=== PATIENT | male | born 1945 | race Caucasian/White ===

== ENCOUNTER 2018-05-03 12:14 | Emergency (ER) | payer MEDICARE ==
[~2018-05-03] VITALS: Ht 167.6 cm; Wt 84.1 kg
[2018-05-03 12:56] LABS: INR 1.1 INR; PARTIAL THROMBOPLASTIN TIME 31 SECONDS (22-32)
[2018-05-03 13:02] LABS: ALANINE AMINOTRANSFERASE 119 U/L (12-78); ALBUMIN 2.9 G/DL (3.4-5.0); ALBUMIN/GLOBULIN RATIO 0.7 (1.1-1.5); ALKALINE PHOSPHATASE 97 IU/L (46-116); ANION GAP 11 (8-16); ASPARTATE AMINO TRANSFERASE 74 U/L (10-37); BILIRUBIN,TOTAL 0.7 MG/DL (0.1-1.0); BLOOD UREA NITROGEN 17 MG/DL (7-18); CALCIUM 8.7 MG/DL (8.5-10.1); CHLORIDE 101 MMOL/L (99-107); CREATININE 1.13 MG/DL (0.60-1.10); GLUCOSE 177 MG/DL (70-104); POTASSIUM 3.9 MMOL/L (3.5-5.1); SODIUM 137 MMOL/L (135-145); TOTAL CARBON DIOXIDE 25.5 MMOL/L (24-32); TOTAL PROTEIN 6.9 G/DL (6.4-8.2); eGFR 64 ML/MIN
[2018-05-03 13:06] LABS: BASOPHILS % (AUTO) 0.5 % (0-1); EOSINOPHILS # (AUTO) 0.1 X10'3 (0-0.9); HEMATOCRIT 37.7 % (42.0-52.0); LYMPHOCYTES # (AUTO) 1.2 X10'3 (1.1-4.8); MEAN CORPUSCULAR HEMOGLOBIN 29.9 PG (27.0-31.0); MEAN CORPUSCULAR HGB CONC 34.4 % (33.0-36.5); MEAN CORPUSCULAR VOLUME 87.1 FL (78-98); MEAN PLATELET VOLUME 8.4 FL (7.4-10.4); MONOCYTES # (AUTO) 0.5 X10'3 (0-0.9); MONOCYTES % (AUTO) 7.2 % (2-12); NEUTROPHILS # (AUTO) 5.4 X10'3 (1.8-7.7); NEUTROPHILS % (AUTO) 73.3 % (42-75); PLATELET COUNT 214 X10'3 (140-440); RED BLOOD COUNT 4.33 X10'6 (4.70-6.10); RED CELL DISTRIBUTION WIDTH 13.3 % (11.5-14.5); WHITE BLOOD COUNT 7.3 X10'3 (4.5-11.0)
[2018-05-03] MEDS ORDERED: furosemide 20MG tablet PO ONE (13:40)
[2018-05-03] MEDS ORDERED: FURO-150 PO (13:41)
[2018-05-03] MEDS ORDERED: POTA10TA10 PO (13:41)
[2018-05-03] MEDS ORDERED: LEVO500T2 PO (13:41)
[2018-05-03 13:51] VITALS: BP 147/66
== END 2018-05-03 13:57 | disposition home or self-care (01) ==
LOC: ER 12:15
DX: J18.9 Pneumonia, unspecified organism (principal); I50.9 Heart failure, unspecified
CPT/HCPCS: 36415; 71045; 80053; 83880; 84484; 85025; 85610; 85730; 93005; 99285

== ENCOUNTER 2021-11-01 15:16 | Emergency (ER) | payer MEDICARE ==
[~2021-11-01] VITALS: Ht 167.6 cm; Wt 77.3 kg
[~2021-11-01 15:16] MED LIST: FURO-150 PO
[2021-11-01 15:41] VITALS: BP 172/70
[2021-11-01] MEDS ORDERED: AZIT-103 PO (17:06)
[2021-11-01] MEDS ORDERED: ALBU8HFA PO (17:06)
== END 2021-11-01 17:30 | disposition home or self-care (01) ==
LOC: ER 15:18
DX: J20.9 Acute bronchitis, unspecified (principal); R63.0 Anorexia; Z87.01 Personal history of pneumonia (recurrent); Z79.899 Other long term (current) drug therapy; Z68.27 Body mass index [BMI] 27.0-27.9, adult
CPT/HCPCS: 71045; 99283

== ENCOUNTER 2024-01-22 22:17 | Emergency (ER) | payer MEDICARE ==
[~2024-01-22] VITALS: Ht 167.6 cm; Wt 79.5 kg
[2024-01-22 22:21] VITALS: TEMP 96.6
[2024-01-22 22:39] LABS: BASOPHILS # (AUTO) 0.1 X10'3 (0-0.2); HEMATOCRIT 39.3 % (42.0-52.0); HEMOGLOBIN 13.1 g/dl (14.0-17.9); MEAN CORPUSCULAR HEMOGLOBIN 29.4 PG (27.0-31.0); MEAN CORPUSCULAR HGB CONC 33.2 g/dL (33.0-36.5); MEAN CORPUSCULAR VOLUME 88.5 FL (78-98); RED BLOOD COUNT 4.44 X10'6 (4.70-6.10); WHITE BLOOD COUNT 5.9 X10'3 (4.5-11.0)
[2024-01-22 22:40] LABS: BASOPHILS % (AUTO) 0.9 % (0-1); EOSINOPHILS # (AUTO) 0.1 X10'3 (0-0.9); EOSINOPHILS % (AUTO) 2.4 % (0-6); LYMPHOCYTES # (AUTO) 1.9 X10'3 (1.1-4.8); LYMPHOCYTES % (AUTO) 31.5 % (21-51); MEAN PLATELET VOLUME 8.1 FL (7.4-10.4); MONOCYTES # (AUTO) 0.5 X10'3 (0-0.9); MONOCYTES % (AUTO) 8.9 % (2-12); NEUTROPHILS # (AUTO) 3.3 X10'3 (1.8-7.7); NEUTROPHILS % (AUTO) 56.3 % (42-75); PLATELET COUNT 182 X10'3 (140-440); RED CELL DISTRIBUTION WIDTH 15.7 % (11.5-14.5)
[2024-01-22] MEDS: ondansetron 4mg rapidly disintigrating tab PO ONE (22:57)
[2024-01-22] MEDS: aspirin 325mg tablet PO ONE (22:57)
[2024-01-22 23:05] LABS: ALBUMIN 3.5 G/DL (3.4-5.0); ANION GAP 5 (8-16); BLOOD UREA NITROGEN 20 MG/DL (7-18); BUN/CREATININE RATIO 18.9 (10.0-20.0); CALCIUM 9.2 MG/DL (8.5-10.1); CHLORIDE 104 MMOL/L (99-107); CREATININE 1.06 MG/DL (0.60-1.10); GLUCOSE 150 MG/DL (70-104); POTASSIUM 3.8 MMOL/L (3.5-5.1); PRO BRAIN NATRIURETIC PEPTIDE 649 PG/ML (0-450); SODIUM 139 MMOL/L (135-145); TOTAL CARBON DIOXIDE 29.9 MMOL/L (24-32); eCRCL 51 ML/MIN; eGFR 67 ML/MIN
[2024-01-23] MEDS: ondansetron/PF 4mg/2ml inj IV ONE (00:25)
[2024-01-23 00:33] VITALS: BP 128/50; PULSE 58; RESP 17; O2SAT 97
== END 2024-01-23 03:45 | disposition home or self-care (01) ==
LOC: ER 22:18
DX: R10.11 Right upper quadrant pain (principal); Z79.899 Other long term (current) drug therapy
CPT/HCPCS: 36415; 71045; 74176; 76700; 80048; 83880; 84484; 85025; 93005; 96374; 99285; J2405

== ENCOUNTER 2024-05-15 18:38 | Inpatient (IN) | payer MEDICARE ==
[~2024-05-15] VITALS: Ht 168.9 cm; Wt 80.5 kg
[2024-05-15 19:15] LABS: BASOPHILS % (AUTO) 0.3 % (0-1); EOSINOPHILS % (AUTO) 0 % (0-6); HEMATOCRIT 35.3 % (42.0-52.0); HEMOGLOBIN 11.7 g/dl (14.0-17.9); LYMPHOCYTES # (AUTO) 0.6 X10'3 (1.1-4.8); LYMPHOCYTES % (AUTO) 4.5 % (21-51); MEAN CORPUSCULAR HEMOGLOBIN 29.1 PG (27.0-31.0); MEAN CORPUSCULAR HGB CONC 33.1 g/dL (33.0-36.5); MEAN CORPUSCULAR VOLUME 87.9 FL (78-98); MEAN PLATELET VOLUME 8.1 FL (7.4-10.4); MONOCYTES # (AUTO) 1.1 X10'3 (0-0.9); MONOCYTES % (AUTO) 8.1 % (2-12); NEUTROPHILS # (AUTO) 12.2 X10'3 (1.8-7.7); NEUTROPHILS % (AUTO) 87.1 % (42-75); PLATELET COUNT 161 X10'3 (140-440); RED BLOOD COUNT 4.01 X10'6 (4.70-6.10); RED CELL DISTRIBUTION WIDTH 15.7 % (11.5-14.5)
[2024-05-15 19:27] LABS: ALANINE AMINOTRANSFERASE 23 U/L (12-78); ALBUMIN 2.8 G/DL (3.4-5.0); ALBUMIN/GLOBULIN RATIO 0.8 (1.1-1.5); ALKALINE PHOSPHATASE 71 IU/L (46-116); ANION GAP 10 (8-16); ASPARTATE AMINO TRANSFERASE 24 U/L (10-37); BILIRUBIN,TOTAL 1.5 MG/DL (0.1-1.0); BLOOD UREA NITROGEN 19 MG/DL (7-18); BUN/CREATININE RATIO 15.3 (10.0-20.0); CALCIUM 8.7 MG/DL (8.5-10.1); CHLORIDE 103 MMOL/L (99-107); CREATININE 1.24 MG/DL (0.60-1.10); GLUCOSE 139 MG/DL (70-104); POTASSIUM 3.6 MMOL/L (3.5-5.1); SODIUM 136 MMOL/L (135-145); TOTAL CARBON DIOXIDE 22.9 MMOL/L (24-32); TOTAL PROTEIN 6.1 G/DL (6.4-8.2); eCRCL 44 ML/MIN; eGFR 56 ML/MIN
[2024-05-15 19:35] LABS: MAGNESIUM 1.7 MG/DL (1.5-2.4); PRO BRAIN NATRIURETIC PEPTIDE 3284 PG/ML (0-450)
[2024-05-15 19:46] LABS: BILIRUBIN,URINE SMALL (Neg); CLARITY,URINE CLOUDY (Clear); COLOR,URINE YELLOW (Yellow); GLUCOSE, URINE NEGATIVE (Neg); KETONES,URINE NEGATIVE (Neg); LEUKOCYTE ESTERASE ,URINE SMALL (Neg); NITRITES, URINE POSITIVE (Neg); OCCULT BLOOD,URINE SMALL (Neg); PH,URINE 5.5 (4.8-8.0); PROTEIN,URINE 30 mg/dl (Neg)
[2024-05-15 19:55] LABS: UA COLLECTION TYPE URINAL
[2024-05-15 20:01] LABS: MUCUS STRANDS FEW /LPF (Neg); SQUAMOUS EPITHELIAL CELL,UR FEW /LPF (FEW); WBC,URINE TNTC /HPF (0-4)
[2024-05-15 20:02] LABS: BACTERIA,URINE 3+ /HPF (Neg); TRANSITIONAL EPI CELLS,URINE FEW /HPF
[2024-05-15] MEDS: CefTRIAXone 2gm/D5W 50ml BAG 50 ML IV ONE (20:55)
[2024-05-15] MEDS ORDERED: potassium Cl 20 mEq SR tablet PO PRN ×2 (23:40)
[2024-05-15] MEDS ORDERED: magnesium sulf-water 4G/100mL 100 ML IV PRN (23:40)
[2024-05-15] MEDS ORDERED: potassium Cl 40MEQ/1/2NS 520ml 520 ML IV PRN (23:40)
[2024-05-15] MEDS ORDERED: DEXTROSE 15 GM of carb/4 tabs (each vial/BOTTLE has 4 tablets) PO PRN ×2 (23:40)
[2024-05-15] MEDS ORDERED: glucagon, human recombinant 1mg kit SUBCUT PRN (23:40)
[2024-05-15] MEDS ORDERED: magnesium hydroxide 30ml (MOM) UD suspension PO PRN (23:40)
[2024-05-15] MEDS ORDERED: acetaminophen 325mg tablet PO PRN (23:40)
[2024-05-15] MEDS ORDERED: magnesium Cl slow-release 64mg tablet PO PRN (23:40)
[2024-05-15] MEDS ORDERED: magnesium sulf-water 2g/50mL 50 ML IV PRN (23:40)
[2024-05-15] MEDS ORDERED: dextrose 50%-water 50ml dispensing syringe IV PRN ×2 (23:40)
[2024-05-16] VITALS (11 sets, daily range): BP systolic 109–132; BP diastolic 40–78; PULSE 55–84; RESP 14–20; TEMP 96.8–98; O2SAT 96–100
[2024-05-16] MEDS ORDERED: nitroGLYCERIN 0.4mg SUBLingual tab SL PRN (00:25)
[2024-05-16] MEDS ORDERED: metoprolol tartrate 1mg/ml inj IV PRN (00:25)
[2024-05-16] MEDS ORDERED: aminophylline 250mg/10ml inj. IV PRN (00:25)
[2024-05-16] MEDS ORDERED: METO25TA6 PO (01:44)
[2024-05-16] MEDS ORDERED: METF-1203 PO (01:44)
[2024-05-16] MEDS ORDERED: FLO0.4C (01:44)
[2024-05-16] MEDS ORDERED: RAMI2.5C56 PO (01:44)
[2024-05-16] MEDS ORDERED: PIOG45TA65 PO (01:44)
[2024-05-16] MEDS ORDERED: EZET10TA48 PO (01:44)
[2024-05-16] MEDS ORDERED: ATOR-2 PO (01:44)
[2024-05-16] MEDS: INSULIN LISPRO 100 UNIT/ML INSULN.PEN MULTI-DOSE SQ SCH ×2 (07:00→08:28)
[2024-05-16] MEDS: docusate sod 100mg capsule PO SCH (07:13)
[2024-05-16] MEDS: K and/or MAG REPLACEMENT MC SCH (07:13)
[2024-05-16 07:45] LABS: BASOPHILS % (AUTO) 0.3 % (0-1); EOSINOPHILS % (AUTO) 0 % (0-6); HEMATOCRIT 32.6 % (42.0-52.0); HEMOGLOBIN 10.8 g/dl (14.0-17.9); LYMPHOCYTES # (AUTO) 0.9 X10'3 (1.1-4.8); LYMPHOCYTES % (AUTO) 7.2 % (21-51); MEAN CORPUSCULAR HEMOGLOBIN 29.2 PG (27.0-31.0); MEAN CORPUSCULAR VOLUME 88.5 FL (78-98); NEUTROPHILS # (AUTO) 10.5 X10'3 (1.8-7.7); NEUTROPHILS % (AUTO) 84.5 % (42-75); PLATELET COUNT 128 X10'3 (140-440); RED BLOOD COUNT 3.68 X10'6 (4.70-6.10); WHITE BLOOD COUNT 12.4 X10'3 (4.5-11.0)
[2024-05-16 08:00] LABS: ALBUMIN 2.6 G/DL (3.4-5.0); ANION GAP 12 (8-16); BLOOD UREA NITROGEN 22 MG/DL (7-18); BUN/CREATININE RATIO 18.6 (10.0-20.0); CALCIUM 8.4 MG/DL (8.5-10.1); CHLORIDE 103 MMOL/L (99-107); CREATININE 1.18 MG/DL (0.60-1.10); GLUCOSE 135 MG/DL (70-104); MAGNESIUM 1.9 MG/DL (1.5-2.4); POTASSIUM 3.6 MMOL/L (3.5-5.1); SODIUM 139 MMOL/L (135-145); TOTAL CARBON DIOXIDE 24.4 MMOL/L (24-32); eCRCL 46 ML/MIN; eGFR 60 ML/MIN
[2024-05-16] MEDS: metoprolol tartrate 25mg tablet PO SCH (08:00)
[2024-05-16] MEDS: lisinopril 5mg tablet PO SCH (08:00)
[2024-05-16] MEDS: azithromycin/NS 500mg/250ml 250 ML IV SCH (08:13)
[2024-05-16] MEDS: furosemide 20MG tablet PO SCH (08:14)
[2024-05-16] MEDS: ezetimibe 10mg tablet PO SCH (08:14)
[2024-05-16] MEDS: atorvastatin 20mg tablet PO SCH (08:27)
[2024-05-16 08:34] LABS: CHOL/HDL RATIO 1.4 (0.00-4.99); CHOLESTEROL 92 MG/DL (0-200); HDL CHOLESTEROL 65 MG/DL (35-60); LDL CHOLESTEROL 24 MG/DL (50-100); TRIGLYCERIDES 40 MG/DL (20-135)
[2024-05-16] MEDS: regadenoson 0.4mg/5ml syringe IV PRN (11:59)
[2024-05-16] MEDS ORDERED: heparin 10,000 units/1 ML INJ IV PRN (15:30)
[2024-05-16] MEDS ORDERED: heparin 10,000 units/1 ML INJ IV ONE (15:30)
[2024-05-16] MEDS ORDERED: heparin 25,000 UNIT/250ml bag 250 ML IV PRN (15:30)
[2024-05-16 16:08] LABS: BASOPHILS % (AUTO) 0.4 % (0-1); EOSINOPHILS # (AUTO) 0.1 X10'3 (0-0.9); EOSINOPHILS % (AUTO) 0.7 % (0-6); HEMATOCRIT 34.7 % (42.0-52.0); HEMOGLOBIN 11.4 g/dl (14.0-17.9); LYMPHOCYTES # (AUTO) 0.5 X10'3 (1.1-4.8); LYMPHOCYTES % (AUTO) 3.7 % (21-51); MEAN CORPUSCULAR HGB CONC 32.9 g/dL (33.0-36.5); MEAN PLATELET VOLUME 9.4 FL (7.4-10.4); MONOCYTES # (AUTO) 0.7 X10'3 (0-0.9); MONOCYTES % (AUTO) 5.2 % (2-12); NEUTROPHILS # (AUTO) 12.4 X10'3 (1.8-7.7); PLATELET COUNT 158 X10'3 (140-440); RED BLOOD COUNT 3.95 X10'6 (4.70-6.10); RED CELL DISTRIBUTION WIDTH 15.6 % (11.5-14.5); WHITE BLOOD COUNT 13.8 X10'3 (4.5-11.0)
[2024-05-16 16:47] LABS: APTT 31 SECONDS (22-32); INR 1.1 INR; PROTHROMBIN TIME 11.7 SECONDS (9.0-12.0)
[2024-05-16] MEDS: aspirin 81mg tab.chew PO ONE (17:06)
[2024-05-16] MEDS ORDERED: enoxaparin 40mg/0.4ml syringe SQ SCH (20:00)
[2024-05-16] MEDS: CefTRIAXone/D5W-Rocephin 1gm 50 ML IV SCH (21:02)
[2024-05-16] MEDS ORDERED: dextrose 50%-water 50ml dispensing syringe IV PRN ×2 (21:55)
[2024-05-16] MEDS ORDERED: glucagon, human recombinant 1mg kit SUBCUT PRN (21:55)
[2024-05-16] MEDS ORDERED: DEXTROSE 15 GM of carb/4 tabs (each vial/BOTTLE has 4 tablets) PO PRN ×2 (21:55)
[2024-05-17] VITALS: BP 127/47; PULSE 56; RESP 16; TEMP 97.8; O2SAT 96
[2024-05-17] MEDS: HYDROcodone/acetaminophen 5mg/325mg tablet PO ONE (00:26)
[2024-05-17 06:00] VITALS: BP 150/57; PULSE 53; RESP 16; TEMP 98.1; O2SAT 98
[2024-05-17] MEDS: INSULIN LISPRO 100 UNIT/ML INSULN.PEN MULTI-DOSE SQ SCH (07:00)
[2024-05-17 07:22] LABS: BASOPHILS % (AUTO) 0.2 % (0-1); EOSINOPHILS % (AUTO) 0.1 % (0-6); HEMATOCRIT 34.5 % (42.0-52.0); HEMOGLOBIN 11.5 g/dl (14.0-17.9); LYMPHOCYTES # (AUTO) 0.6 X10'3 (1.1-4.8); LYMPHOCYTES % (AUTO) 5.1 % (21-51); MEAN CORPUSCULAR HEMOGLOBIN 29.2 PG (27.0-31.0); MEAN CORPUSCULAR HGB CONC 33.4 g/dL (33.0-36.5); MEAN CORPUSCULAR VOLUME 87.3 FL (78-98); MEAN PLATELET VOLUME 9.1 FL (7.4-10.4); MONOCYTES # (AUTO) 0.7 X10'3 (0-0.9); MONOCYTES % (AUTO) 5.9 % (2-12); NEUTROPHILS % (AUTO) 88.7 % (42-75); PLATELET COUNT 164 X10'3 (140-440); RED BLOOD COUNT 3.94 X10'6 (4.70-6.10); RED CELL DISTRIBUTION WIDTH 15.4 % (11.5-14.5); WHITE BLOOD COUNT 11.3 X10'3 (4.5-11.0)
[2024-05-17 07:39] LABS: ALBUMIN 2.6 G/DL (3.4-5.0); ANION GAP 12 (8-16); BLOOD UREA NITROGEN 25 MG/DL (7-18); BUN/CREATININE RATIO 21.2 (10.0-20.0); CALCIUM 8.2 MG/DL (8.5-10.1); CHLORIDE 103 MMOL/L (99-107); CREATININE 1.18 MG/DL (0.60-1.10); GLUCOSE 135 MG/DL (70-104); POTASSIUM 3.2 MMOL/L (3.5-5.1); SODIUM 139 MMOL/L (135-145); TOTAL CARBON DIOXIDE 24.3 MMOL/L (24-32); eCRCL 47 ML/MIN; eGFR 60 ML/MIN
[2024-05-17 08:00] VITALS: RESP 20; O2SAT 98
[2024-05-17] MEDS ORDERED: atorvastatin 20mg tablet PO SCH (08:00)
[2024-05-17] MEDS: metoprolol succinate 25mg (24-HOUR) SR. Tablet PO SCH (09:04)
[2024-05-17] MEDS: aspirin 81mg, enteric-coated 1 TAB TABLET.DR PO SCH (09:05)
[2024-05-17] MEDS: ondansetron/PF 4mg/2ml inj IV PRN (10:55)
[2024-05-17 11:00] VITALS: BP 147/59; PULSE 87; RESP 11; TEMP 97.5; O2SAT 96
[2024-05-17 11:02] VITALS: BP 149/66; PULSE 71
[2024-05-17] MEDS ORDERED: METO-395 PO (11:02)
[2024-05-17] MEDS ORDERED: ASPI-1071 PO (11:02)
[2024-05-17] MEDS ORDERED: ATOR20TA66 PO (11:02)
[2024-05-17] MEDS ORDERED: FLO0.4C PO (11:02)
[2024-05-17] MEDS ORDERED: LEVO-65 PO (11:02)
[2024-05-17 11:03] VITALS: BP_SYST 156; BP_SYST 158; BP_DIAS 62; BP_DIAS 66; PULSE 83; PULSE 90
[2024-05-17] MEDS: POTASSIUM BICARB 20meq eff tab 20 MEQ TABLET.EFF PO ONE (11:19)
== END 2024-05-17 14:28 | disposition home health service (06) | DRG 280 ==
LOC: ER 18:39 → ED HOLD 23:47 → EDBEDREQTM 05-16 13:28 → EDBEDREQDT 05-16 13:28 → PCU 3S 05-16 15:20
PROVIDERS: ADMIT Internal Medicine Critical Care Medicine; ATTEND Internal Medicine
PROC: 4A02XM4 Measurement of Cardiac Total Activity, External Approach (ICD-10-PCS; principal; 2024-05-16)
PROC: 3E073KZ Introduction of Other Diagnostic Substance into Coronary Artery, Percutaneous Approach (ICD-10-PCS; 2024-05-16)
DX: I11.0 Hypertensive heart disease with heart failure (principal); I50.33 Acute on chronic diastolic (congestive) heart failure; I21.A1 Myocardial infarction type 2; J18.9 Pneumonia, unspecified organism; R65.10 Systemic inflammatory response syndrome (SIRS) of non-infectious origin without acute organ dysfunction; N30.00 Acute cystitis without hematuria; J98.11 Atelectasis; R26.81 Unsteadiness on feet; E11.9 Type 2 diabetes mellitus without complications; Z20.822 Contact with and (suspected) exposure to COVID-19; I25.10 Atherosclerotic heart disease of native coronary artery without angina pectoris; Z79.899 Other long term (current) drug therapy; Z79.84 Long term (current) use of oral hypoglycemic drugs; Z87.891 Personal history of nicotine dependence; B96.20 Unspecified Escherichia coli [E. coli] as the cause of diseases classified elsewhere
CPT/HCPCS: 36415; 70450; 71045; 78452; 80048; 80053; 80061; 81001; 82948; 83036; 83605; 83735; 83880; 84145; 84484; 85025; 85610; 85730; 87040; 87077; 87088; 87186; 87502; 87503; 87811; 93005; 93017; 93306; 96365; 99285; A6250; A9500; G0378; J0456; J0696; J2405; J2785; J7030; J7040